=== PATIENT | female | born 1955 | race Caucasian/White ===

== ENCOUNTER → 2023-05-03 | Outpatient (CLI) | payer MEDICARE | END | disposition home or self-care (01) | LOC: RAH 11:07 | PROVIDERS: ATTEND Physician Assistant Medical | DX: Z12.31 Encounter for screening mammogram for malignant neoplasm of breast (principal) | CPT/HCPCS: 77067 ==

== ENCOUNTER → 2024-03-29 | Outpatient (CLI) | payer MEDICARE ==
--- NOTE | 2024-03-29 11:58 | HMCIMG ---
CT CHEST HIGH RESOLUTION (WO) HISTORY: Abnormal immunological findings COMPARISON: None TECHNIQUE: Multiple sequential axial images of the chest were obtained from the thoracic inlet through upper abdomen. Patient was not given contrast through intravenous route. High-resolution images were obtained. FINDINGS: Mild bibasilar linear atelectasis changes are seen. Small hiatal hernia is seen. Mild interstitial fibrotic changes are seen. No evidence of bronchiectasis changes are noted. There is no evidence of pulmonary nodule or parenchymal disease. No pleural effusion or pericardial effusion is seen. There is no evidence of pneumothorax. There are normal size mediastinal and hilar lymph nodes. The heart is not enlarged. Degenerative changes of the thoracolumbar spine are present. There is no evidence of adrenal nodule. IMPRESSION: 1. No evidence of pulmonary nodule or effusion is seen. Mild interstitial fibrotic changes are seen. No evidence of bronchiectasis changes are noted. CT was performed with one or more following dose reduction techniques: automated exposure control, adjustment of the mA and kv according to patient's size, or use of a iterative reconstruction technique.
--- NOTE | 2024-03-29 13:54 | HMCSR ---
APPROVED REPORT EXAM: Two-dimensional and M-mode echocardiogram with Doppler and color Doppler. INDICATION ICD: r76.8 2D Dimensions RVDd3.3 cmLVEF(%)64.4 (>50%)LVED Vol(simp.)88.0 mL IVSd0.9 (0.7-1.1cm)FS(%)35 %LVES Vol(simp.)31.0 mL LVDd4.3 (3.8-5.6cm)LA (2D)3.8 (1.6-4.0cm)LVEF(%, simp.)65 % PWd0.8 (0.7-1.1cm)Ao Root(2D)2.8 (2.0-3.7cm)LA ESV INDEX (4CH)27.70 mL/m2 IVSs1.0 cmLVOT diam1.8 (1.8-2.4cm)LA ESV INDEX (2CH)21.50 mL/m2 LVDs2.8 (2.5-4.0cm)IVC diam1.3 cmLA ESV INDEX (BP)25.10 mL/m2 PWs1.2 cm M-Mode Dimensions EPSS0.8 cm LA (MM)3.8 (1.6-4.0cm) Ao Root(MM)2.9 (2.0-3.7cm) Aortic Valve AoV VTI0.3 mAo Mean GR5.0 mmHgLVOT VTI0.22 m MARIPOSA (VMAX)1.9 cm2AVA (VTI) 1.9 cm2 Mitral Valve MV E Nake064.7 cm/sDECEL Fspy022 ms MV A Vmax76.5 cm/sP 1/2 T89 ms E/A ratio1.3MVA (PHT)2.5 cm2 MR Max PG144 mmHg TDI E/E' Hxgsct28.7E/E' Jcnnssh49.3 Medial E' Peak V8.60 cm/sLateral E' Peak V9.80 cm/s Pulmonary Valve PV VTI0.25 mPV Mean GR3 mmHg Left Ventricle The left ventricle is normal size. There is normal left ventricular wall thickness. LVEF is 60-65%. T he left ventricular diastolic function is normal. Right Ventricle The right ventricle is normal size. The right ventricular systolic function is normal. Atria The left atrium size is normal. The right atrium size is normal. Aortic Valve The aortic valve is normal in structure. No aortic regurgitation is present. There is no aortic valvu lar stenosis. Mitral Valve The mitral valve is normal in structure. Mitral regurgitation is mild. There is no mitral valve steno sis. Tricuspid Valve The tricuspid valve is normal in structure. There is no tricuspid valve regurgitation noted. Pulmonic Valve The pulmonary valve is normal in structure. There is no pulmonic valvular regurgitation. Great Vessels The aortic root is normal in size. The IVC is normal in size and collapses >50% with inspiration. Pericardium There is no pericardial effusion. Conclusion The left ventricle is normal size. LVEF is 60-65%. The left ventricular diastolic function is normal. The right ventricle is normal size. The right ventricular systolic function is normal. The left atrium size is normal. The right atrium size is normal. Mitral regurgitation is mild. There is no pericardial effusion.
--- NOTE | 2024-03-29 14:34 | HMCIMG ---
CT ABDOMEN/PELVIS W/O CONTRAST HISTORY: Abnormal neurological findings COMPARISON: None TECHNIQUE: Multiple sequential axial images of the abdomen and pelvis were obtained from the dome of the diaphragm through symphysis pubis. Patient was not given contrast through intravenous route. Oral contrast was not given. FINDINGS: No pleural effusion is seen bilaterally. There is no evidence of parenchymal disease or pulmonary nodule of the visualized lower lungs. Degenerative changes of the thoracolumbar spine are present. The heart is not enlarged. Liver measures 15 cm, The liver, spleen, adrenal glands and pancreas are unremarkable. There is no evidence of hydronephrosis bilaterally. No evidence of renal stone is seen. There is diverticulosis. Mild small bowel dilatation with fluid-filled may be related to enteritis. Fecal material is seen in the colon. There are normal size retroperitoneal and mesenteric lymph nodes. No ascites is seen. Atherosclerotic changes are present. Bilateral hip prosthesis is seen. Pelvic sidewalls are symmetric bilaterally. Bladder is well distended without wall thickening. IMPRESSION: 1. There is diverticulosis. Mild small bowel dilatation with fluid-filled may be related to enteritis. CT was performed with one or more following dose reduction techniques: automated exposure control, adjustment of the mA and kv according to patient's size, or use of a iterative reconstruction technique.
== END | disposition home or self-care (01) ==
LOC: RAH 09:27
PROVIDERS: ATTEND Internal Medicine
DX: I34.0 Nonrheumatic mitral (valve) insufficiency (principal); K57.30 Diverticulosis of large intestine without perforation or abscess without bleeding; I70.90 Unspecified atherosclerosis; N32.89 Other specified disorders of bladder; J98.11 Atelectasis; K44.9 Diaphragmatic hernia without obstruction or gangrene; J84.10 Pulmonary fibrosis, unspecified; J84.9 Interstitial pulmonary disease, unspecified; R76.8 Other specified abnormal immunological findings in serum; M47.815 Spondylosis without myelopathy or radiculopathy, thoracolumbar region
CPT/HCPCS: 71250; 74176; 93306

== ENCOUNTER → 2024-05-04 | Outpatient (CLI) | payer MEDICARE ==
--- NOTE | 2024-05-04 09:58 | HMCIMG ---
MAMMO SCREENING BILATERAL HISTORY: Screening mammogram. COMPARISON: 05/03/2023 TECHNIQUE: Bilateral screening mammogram with CAD was performed with craniocaudal and mediolateral oblique projections. FINDINGS: There are scattered areas of fibroglandular density. Bilateral dystrophic calcifications are seen. There is no evidence of a dominant mass, or suspicious microcalcification. There is no evidence of nipple retraction or skin thickening. IMPRESSION: 1. Stable mammogram. Patient was entered into a reminder system with a target due date for their next mammogram. BI-RADS: CATEGORY 2: BENIGN FINDINGS Recommend monthly self breast exam as well as annual clinical examination. A negative x-ray should not delay biopsy if a dominant or clinically suspicious mass is present, since 8-10% of cancers are not identified by mammography. Dense breasts particularly, may obscure an underlying neoplasm. Some of these may be detected clinically and therefore, clinical examination is an essential part of breast evaluation.
== END | disposition home or self-care (01) ==
LOC: RAH 09:31
PROVIDERS: ATTEND Family Medicine
DX: Z12.31 Encounter for screening mammogram for malignant neoplasm of breast (principal); R92.323 Mammographic fibroglandular density, bilateral breasts
CPT/HCPCS: 77067

== ENCOUNTER → 2025-03-16 | Outpatient (CLI) | payer MEDICARE, OTHER ==
--- NOTE | 2025-03-17 14:37 | HMCSR ---
APPROVED REPORT EXAM: Two-dimensional and M-mode echocardiogram with Doppler and color Doppler. INDICATION ICD: Shortness of breath R06.02 2D Dimensions RVDd 3.1 cm LVEF(%) 74.1 (>50%) LVED Vol(simp.) 68.6 mL IVSd 0.6 (0.7-1.1cm) FS(%) 43 % LVES Vol(simp.) 24.3 mL LVDd 4.5 (3.8-5.6cm) LA (2D) 3.7 (1.6-4.0cm) LVEF(%, simp.) 65 % PWd 0.8 (0.7-1.1cm) Ao Root(2D) 2.8 (2.0-3.7cm) LA ESV INDEX (BP) 26.95 mL/m2 LVDs 2.6 (2.5-4.0cm) LVOT diam 1.7 (1.8-2.4cm) IVC diam 1.5 cm M-Mode Dimensions EPSS 0.3 cm LA (MM) 3.8 (1.6-4.0cm) Ao Root(MM) 2.6 (2.0-3.7cm) Aortic Valve AoV Vmax 1.5 m/s Ao Peak GR 9.4 mmHg LVOT Vmax 1.1 m/s AoV VTI 0.3 m Ao Mean GR 5.2 mmHg LVOT VTI 0.24 m MARIPOSA (VMAX) 1.69 cm2 Al P1/2T 496 ms MARIPOSA (VTI) 1.6 cm2 Mitral Valve MV E Vmax 100.9 cm/s DECEL Time 92 ms MV A Vmax 108.8 cm/s P 1/2 T 59 ms E/A ratio 0.9 MVA (PHT) 3.7 cm2 TDI E/E' Medial 9.9 E/E' Lateral 11.7 Medial E' Peak V 10.19 cm/s Lateral E' Peak V 8.64 cm/s Pulmonary Valve PV Vmax 1.4 m/s PV VTI 0.33 m PV Mean GR 4.1 mmHg PV Peak GR 7.3 mmHg Tricuspid Valve TR Vmax 2.1 m/s RVSP 17.9 mmHg TR Peak GR 17.9 mmHg Left Ventricle The left ventricle is normal size. There is normal left ventricular wall thickness. LVEF is 60-65%. The left ventricular diastolic function is normal. Right Ventricle The right ventricle is normal size. The right ventricular systolic function is normal. Atria The left atrium size is normal. The right atrium size is normal. Aortic Valve The aortic valve is normal in structure. Trivial aortic regurgitation. There is no aortic valvular stenosis. Mitral Valve The mitral valve is normal in structure. Mitral regurgitation is mild. There is no mitral valve stenosis. Tricuspid Valve The tricuspid valve is normal in structure. There is mild tricuspid valve regurgitation noted. Estimated pulmonary pressures are normal. Pulmonic Valve The pulmonary valve is normal in structure. There is no pulmonic valvular regurgitation. Great Vessels The aortic root is normal in size. The IVC is normal in size and collapses >50% with inspiration. Pericardium There is no pericardial effusion. Other Information Quality : Good Rhythm : NSR Conclusion LVEF is 60-65%. The left ventricular diastolic function is normal. Trivial aortic regurgitation. Mitral regurgitation is mild.
== END | disposition home or self-care (01) ==
LOC: RAH 14:32
PROVIDERS: ATTEND Internal Medicine
DX: I08.3 Combined rheumatic disorders of mitral, aortic and tricuspid valves (principal); R06.02 Shortness of breath
CPT/HCPCS: 93306